=== PATIENT | female | born 1950 | race Caucasian/White ===

== ENCOUNTER → 2022-10-12 13:14 | Outpatient (CLI) | payer MEDICARE, SELFPAY ==
--- NOTE | 2022-10-12 14:27 | CA_ITS ---
APPROVED REPORT Exam: Exercise Treadmill Technologist: Lanny Mack Ht: 5 ft 0 in Wt: 165 lbs BSA: 1.72 m2 HR: 69 bpm BP: 142/83 mmHg Rhythm: NSR Indications: Chest pain Medical History Medications: Aspirin,,,,, Atenolol,,,,, Lovastatin,,,,, Stress Test Details Test: Luis Carlos HR Resting HR: 69 bpm Max Heart Rate (APMHR): 148 bpm Max HR Achieved: 97 bpm Target HR (85% APMHR): 126 bpm % of APMHR: 66 Recovery HR: 67 bpm HR response to stress: Blunted HR response to stress BP Resting BP: 142.0/83.0 mmHg Max BP: 194.0/70.0 mmHg Recovery BP: 167.0/79.0 mmHg BP response to stress: Abnormal hypertensive response to stress. ECG Resting ECG: Normal sinus rhythm, no ST changes Stress ECG: No change (suboptimal stress) Arrhythmia: None Recovery ECG: No change Recovery Arrhythmia: None Clinical Exercise duration: 02:05 min Highest Stage Achieved: Exercise capacity: 4.6 METs Overall Exercise Capacity for Age: Average Stress ECG Conclusion This was a suboptimal exercise stress test as the patient was unable to achieve > 85% max HR at peak stress. Patient walked 2:05 of stage I Luis Carlos Protocol. Test stopped due to shortness of air, fatigue. She had an average exercise capacity compared to age and sex matched peers. She had a blunted HR response (took home atenolol) and a near-exaggerted BP response to exercise. Symptoms: Dyspnea. No chest pain. Arrhythmias/Ectopy: None ST-T Changes: No change at the suboptimal max HR achieved. Conclusion: Average exercise capacity (4.6 METs) Blunted heart rate response (patient received atenolol) to exercise, with nearly exaggerated BP response relative to max stress level achieved No ST changes at the suboptimal max HR achieved. Inconclusive exercise stress test (due to suboptimal HR achieved) Test Summary REST . . . . . . . Sitting REST . . . . . . . Standing REST 05:32 0.0 0.0 69 . 142/ 83 . . Stage 1 01:00 10.0 1.7 89 . . . . Stage 1 . . . . . . . Shortness of Breath Stage 1 02:00 10.0 1.7 96 . . . . Stage 1 02:05 10.0 1.7 96 . . . Stop exercise at 02:05 RECOVERY 01:00 0.0 0.0 87 . . . . RECOVERY 02:00 0.0 0.0 83 . . . . RECOVERY 03:00 0.0 0.0 79 . 194/ 70 . . RECOVERY 04:00 0.0 0.0 74 . 194/ 70 . . RECOVERY 05:00 0.0 0.0 72 . 177/ 81 . . RECOVERY 06:00 0.0 0.0 68 . 177/ 81 . . RECOVERY 07:00 0.0 0.0 71 . 167/ 79 . . RECOVERY 08:00 0.0 0.0 67 . 154/ 83 . . RECOVERY 08:49 0.0 0.0 69 . 154/ 83 . . Electronically signed by : Rosalia Silva, 10/13/2022 22:56:50
== END ==
PROVIDERS: PCP Emergency Medicine; Visit Provider Physician Assistant
DX: R06.00 Dyspnea, unspecified (principal); R07.9 Chest pain, unspecified
CPT/HCPCS: 93017

== ENCOUNTER → 2023-01-23 12:00 | Outpatient (CLI) | payer MEDICARE, SELFPAY ==
--- NOTE | 2023-01-23 12:00 | NM_ITS ---
APPROVED REPORT Exam: Nuclear Stress Test Indication: soa Patient Location: Outpatient Stress Tech: Lanny Mack ND Tech:CASSIDY Bailey RT (R)(N)(M) Ht: 5 ft 0 in Wt: 162 lbs Bra Size: b HR: 63 bpm BP: 162/79 mmHg BSA: 1.71 m2 Rhythm: NSR TID: 1.08 History: Dyspnea Procedure: Patient received 0.4 mg of intravenous Lexiscan, resting heart rate 63 bpm, resting blood pressure 162/79 mmHg, with Lexiscan maximum heart rate achieved was 82 bpm which is 85 % of the maximum predicted heart rate and blood pressure was 162/79 mmHg. With Lexiscan, patient denied any complaint of chest pain. Cardiac Stress and Resting SPECT Images: Cardiac Stress and Resting SPECT images were obtained using technetium 99m Myoview 32.1 mCi stress and 9.98 mCi at rest. Resting and stress imaging in supine and prone positions demonstrate no evidence of fixed or reversible perfusion defects. Gated imaging demonstrates mild reduction in global and regional LV systolic function. LVEF is calculated at 49%. Conclusion: No evidence of fixed or reversible perfusion defects. Gated imaging demonstrates mild reduction in global and regional LV systolic function. LVEF is calculated at 49%. Electronically signed by : Rosalia Silva MD 01/28/2023 22:43:00
--- NOTE | 2023-01-23 14:07 | CA_ITS ---
APPROVED REPORT Exam: Pharmacologic Technologist: Lanny Mack Ht: 5 ft 0 in Wt: 165 lbs BSA: 1.72 m2 HR: 64 bpm BP: 162/79 mmHg Rhythm: NSR Indications: Shortness of Air Medical History Medications: Aspirin,,,,, Atenolol,,,,, Lovastatin,,,,, Stress Test Details Test: LEXISCAN HR Resting HR: 63 bpm Max Heart Rate (APMHR): 148 bpm Max HR Achieved: 82 bpm Target HR (85% APMHR): 126 bpm % of APMHR: 55 Recovery HR: 73 bpm BP Resting BP: 162.0/79.0 mmHg Max BP: 162.0/79.0 mmHg Recovery BP: 148.0/75.0 mmHg ECG Resting ECG: Sinus rhythm Stress ECG: No significant ST changes Arrhythmia: PVCs Clinical Exercise duration: 04:00 min Highest Stage Achieved: Stress ECG Conclusion Symptoms: Dyspnea, stomach cramps Arrhythmias/Ectopy: PVCs ST-T Changes: No significant ST changes Conclusion: Unremarkable Lexiscan stress test. Myoview images are reported separately. Test Summary REST . . . . . . . Resting REST 04:19 . . 63 . 162/ 79 . . Stage 1 . . . . . . . Myoview Injected Stage 1 01:00 . . 76 . . . . Stage 2 01:00 . . 79 . 154/ 76 . . Stage 3 01:00 . . 77 . 148/ 78 . . Stage 4 01:00 . . 76 . 151/ 83 . Stop exercise at 04:00 RECOVERY 01:00 . . 66 . 144/ 75 . . RECOVERY 02:00 . . 76 . 148/ 75 . . RECOVERY 02:34 . . 76 . 151/ 78 . . Electronically signed by : Rosalia Silva MD 01/28/2023 22:41:05
== END ==
PROVIDERS: PCP Emergency Medicine; Visit Provider Physician Assistant
DX: R06.09 Other forms of dyspnea (principal); R07.9 Chest pain, unspecified; R53.1 Weakness; E78.5 Hyperlipidemia, unspecified; I10 Essential (primary) hypertension; R10.9 Unspecified abdominal pain; R94.31 Abnormal electrocardiogram [ECG] [EKG]; Z72.0 Tobacco use
CPT/HCPCS: 78452; 93017; A9502; J2785

== ENCOUNTER → 2023-02-14 13:19 | Outpatient (CLI) | payer MEDICARE, SELFPAY ==
[2023-02-14 14:10] VITALS: PULSE 77; PULSE 79
--- NOTE | 2023-02-14 14:16 | CA_ITS ---
APPROVED REPORT EXAM: Comprehensive 2D, Doppler, and color-flow Echocardiogram Cab Supervisor: Neda Valdes CRT Ht: 5 ft 2 in Wt: 166lbs BSA: 1.77 BP: 158/87 mmHg Indications: Abnormal ECG, Chest Pain, Shortness of Breath, Hyperlipidemia, Hypertension/HDD 2D Dimensions Aortic Root 1.86 cm F: 2.7 - 3.3 LA Volume 28.50 mL LA Volume Index 16.10 mL/m2 (M/F) 16-34 M-Mode Dimensions RVDd 3.53 cm (0.9-2.6) LA Diam 3.82 cm (1.9-4.0) LVDd 3.19 cm (3.5-5.7) Ao Diam 3.25 cm (2.0-3.7) LVDs 2.28 cm (3.5-5.7) IVSd 2.09 cm (0.6-1.1) PWd 1.06 cm (0.6-1.1) EF (Teich) 56.40% FS 28.50% EDV (Teich) 40.60 mL TAPSE 1.70 (<1.7) ESV (Teich) 17.70 mL LV Diastology E Decel Time 180.00 (160-240 msec) E/A Ratio 0.9 MED E' 6.10 (< 7 cm/sec) MED A' 11.10 cm/s E'/MED E' Ratio 15.92 (>14) LAT E' 5.40 (<10 cm/sec) LAT A' 14.00 cm/s E/LAT E' Ratio 17.98 (>14) Aortic Valve LVOT Max 149.00 (70-110 cm/s) LVOT VTI 29.41 cm AoV Peak Vikram. 178.00 (50-130 cm/s) AO Peak GR. 12.70 mmHg AO Mean GR. 6.50 (<5 mmHg) AO VTI 34.65 (18-25 cm) Mitral Valve MV E Max Vikram. 97.00 (40-130 cm/s) MV A Velocity 107.00 (40-130 cm/s) E/A Ratio 0.90 MV Decel. Time 180.00 (160-240 ms) MV PHT 53.00 ms Pulmonary Valve PV Peak Velocity 114.00 (50-150 cm/s) Tricuspid Valve TR P. Velocity 175.00 cm/s RAP Estimate 10.00 mmHg RVSP 22.30 mmHg Left Ventricle The left ventricle is normal size. The left ventricular systolic function is normal. The left ventricular ejection fraction is within the normal range. There is increased LV wall thickness. There is normal LV segmental wall motion. Transmitral Doppler flow pattern suggests impaired LV relaxation. LVEF is 60%. Right Ventricle The right ventricle is normal size. The right ventricular systolic function is normal. There is increased RV wall thickness. Atria The left atrium size is normal. The right atrium size is normal. There is no Doppler evidence of interatrial shunt. Aortic Valve The aortic valve is mildly thickened. There is no aortic valvular stenosis. No aortic regurgitation is present. Mitral Valve The mitral valve is normal in structure. No evidence of mitral valve stenosis. Trace mitral regurgitation. Tricuspid Valve The tricuspid valve leaflets are thin and pliable. Trace tricuspid regurgitation. There is insufficient TR jet to estimate RVSP. Pulmonic Valve The pulmonary valve is normal in structure. Trace pulmonic regurgitation. Great Vessels The aortic root is normal in size. The ascending aorta is normal in size. IVC is normal in size and collapses >50% with inspiration. Pericardium There is no pericardial effusion. Other Information Study Quality: Fair Conclusion Normal biventricular systolic function. No significant valvular stenosis or regurgitation. Electronically signed by : Rosalia Sivla MD 02/17/2023 20:10:07
== END ==
PROVIDERS: PCP Emergency Medicine; Visit Provider Physician Assistant
DX: E78.5 Hyperlipidemia, unspecified (principal); I10 Essential (primary) hypertension; R06.00 Dyspnea, unspecified; R07.9 Chest pain, unspecified; R10.9 Unspecified abdominal pain; R53.1 Weakness; R94.31 Abnormal electrocardiogram [ECG] [EKG]
CPT/HCPCS: 93306; 94060; 94640; 94727; 94729

== ENCOUNTER 2023-08-14 13:48 | Outpatient (CLI) | payer MEDICARE, SELFPAY ==
--- NOTE | 2023-08-14 13:51 | CT_ITS ---
FINAL REPORT TECHNIQUE: Thin section axial images were obtained from the lung apices to the upper abdomen by computed tomography. Reformatted images were obtained and reviewed. This study was performed with techniques to keep radiation doses al low as reasonably achievable (ALARA). Individualized dose reduction techniques using automated exposure control or adjustment of mA and/or kV according to the patient's size were employed. CLINICAL HISTORY: H/O TOBACCO USE, current smoker. 1/2ppd for 50trs COMPARISON: None FINDINGS: CHEST CT LOW DOSE 73-year-old female, current smoker, [id number] history. CTDI vol (mGy): 2.9 DLP (mGy-cm): 96.38 There is no axillary adenopathy. There is no mediastinal or hilar mass or adenopathy. The heart is normal in size. Severe coronary artery calcifications are present, responsible for the S designation in this patient. There is no pericardial or pleural effusion. There is mild emphysema and mild pulmonary scarring. Lung window images demonstrate no suspicious infiltrate or nodule. There are several chronic left posterior rib fractures present. Limited images of the upper abdomen are unremarkable. IMPRESSION: Lung-RADS category 1 S, the S designation for severe coronary artery calcifications. Recommend 12 month follow up low dose chest CT. Reviewed, Interpreted and Dictated by Chao Vivar III, MD Transcribed by Nell Blair Authenticated and [facility]
== END 2023-08-14 23:59 | disposition home or self-care (01) ==
LOC: RAD 13:48
PROVIDERS: PCP Emergency Medicine; Visit Provider Emergency Medicine
DX: Z87.891 Personal history of nicotine dependence (principal); Z12.2 Encounter for screening for malignant neoplasm of respiratory organs
CPT/HCPCS: 71271